=== PATIENT | female | born 1940 | race Caucasian/White ===

== ENCOUNTER 2021-07-01 03:51 | Outpatient (CLI) | payer MEDICARE ==
[~2021-07-01] VITALS: Ht 182.9 cm; Wt 86.2 kg
[2021-07-01] MEDS ORDERED: IOHEXOL 300MG/ML 50 ML VIAL IV ONE ×2 (03:52→04:15)
== END 2021-07-01 23:59 | disposition home or self-care (01) ==
LOC: XRAY 03:51
PROVIDERS: ATTEND Internal Medicine
DX: D32.0 Benign neoplasm of cerebral meninges (principal)
CPT/HCPCS: 76705; 93880; Q9967